=== PATIENT | female | born 1940 | race Caucasian/White ===

== ENCOUNTER 2021-01-20 15:11 | Inpatient (IN) ==
[2021-01-20 16:03] LABS: Basophils % 0.2 %; Eosinophils % 0.4 %; Hematocrit 41.5 % (35.3-44.9); Hemoglobin 13.2 g/dL (11.5-15.4); Immature Granulocytes % 0.6 % (0-4); Lymphocytes # 0.8 K/mcL (0.6-4.6); Mean Corpuscular HGB Conc 31.8 g/dL (31.6-35.5); Mean Corpuscular Volume 97.4 fL (83.0-100.0); Mean Platelet Volume 11.7 fL (9.4-12.4); Monocytes # 0.4 K/mcL (0.0-1.3); Neutrophils # 3.8 K/mcL (1.6-8.9); Platelet Count 172 K/mcL (140-400); Red Blood Count 4.26 M/mcL (3.82-4.97); Red Cell Distribution Width 13.5 % (11.5-14.5); Segmented Neutrophils % 75.8 %
[2021-01-20 16:12] LABS: INR 1.1; Prothrombin Time 12.2 Seconds (9.4-12.1)
[2021-01-20 16:15] LABS: Activated Partial Thrombo Time 28.4 Seconds (26.0-36.0)
[2021-01-20] MEDS ORDERED: Isovue-370 500 ML BOTTLE IVP ONE (16:27)
[2021-01-20 16:29] LABS: Albumin 3.4 g/dL (3.5-5.7); Albumin/Globulin Ratio 1.1 (1.1-2.2); Bilirubin,Total 0.4 mg/dL (0.3-1.0); Calcium 8.4 mg/dL (8.6-10.3); Globulin 3.2 g/dL (2.4-3.5); Magnesium 1.5 mg/dL (1.6-2.6); Potassium 4.3 mEq/L (3.5-5.1); Total Protein 6.6 g/dL (6.4-8.9); Troponin I 0.03 ng/mL (< 0.04)
[2021-01-20 16:43] LABS: Thyroid Stimulating Hormone 1.538 mcIU/mL (0.340-5.600)
[2021-01-20] MEDS ORDERED: 0.9 % Sodium Chloride 1,000 ML IV ONE (16:54)
[2021-01-20 17:06] LABS: Influenza A PCR Negative (Negative); Influenza B PCR Negative (Negative); Resp. Syncytial Virus PCR Negative (Negative)
[2021-01-20 17:08] LABS: SARS-CoV-2 by PCR (In House) Positive (Negative)
[2021-01-20 18:28] LABS: Amorphous Sediment,Urine Few per hpf (None-Few); Bacteria,Urine Moderate per hpf (None-Few); Bilirubin,Urine Negative (Negative); Blood,Urine Moderate (Negative); Clarity,Urine Turbid (Clear); Color,Urine Yellow (Yellow); Glucose,Urine (UA) 30 mg/dL (Normal); Ketones,Urine Negative (Negative); Leukocyte Esterase,Urine Large (Negative); Mucus,Urine Few per lpf (None-Few); Nitrite,Urine Positive (Negative); Protein,Urine 200 mg/dL (Neg-Trace); RBC,Urine 0-3 per hpf (0-3); Specific Gravity,Urine 1.018 (1.010-1.025); Squamous Epithelial Cell,Urine Few per hpf (None-Few); Urobilinogen,Urine Normal (Normal); WBC,Urine TNTC per hpf (0-3)
[2021-01-20] MEDS ORDERED: cefTRIAXone 1,000 MG in Water for inj. (sterile) 10 ML IVP ONE (18:33)
[2021-01-20] MEDS ORDERED: Melatonin 3 MG TABLET PO PRN (19:20)
[2021-01-20] MEDS ORDERED: Naloxone 0.4 MG/ML INJ IVP PRN (19:20)
[2021-01-20] MEDS ORDERED: *HR* Dextrose 50 % in Water (Syg) 50 ML SYRINGE IVP PRN (19:28)
[2021-01-20] MEDS ORDERED: D5% in Water 1,000 ML IVC PRN (19:28)
[2021-01-20] MEDS ORDERED: Dextrose Gel 15 GM/37.5 ML TUBE PO PRN ×2 (19:28)
[2021-01-20 19:37] LABS: Fibrinogen 610 mg/dL (169-393)
[2021-01-20 19:39] LABS: D-Dimer 1865 ng/mLFEU (0-500)
[2021-01-20] MEDS ORDERED: Ipratropium 1 PUFF INHALER IH PRN (19:42)
[2021-01-20] MEDS ORDERED: *HR* HYDROcodone/Acet 5/325 mg TABLET PO PRN (20:16)
[2021-01-20] MEDS: Ipratropium 1 PUFF INHALER IH SCH (21:28)
[2021-01-20] MEDS ORDERED: 0.9 % Sodium Chloride 1,000 ML IVC SCH (21:45)
[2021-01-20] MEDS: Insulin LISPRO 300 UNITS/3 ML VIAL SUBQ SCH (22:39)
[2021-01-20] MEDS: Gabapentin 300 MG CAPSULE PO SCH (22:40)
[2021-01-21] MEDS: Ipratropium 1 PUFF INHALER IH SCH ×4 (04:05→23:35)
[2021-01-21 05:30] LABS: Hematocrit 37.6 % (35.3-44.9); Hemoglobin 12.3 g/dL (11.5-15.4); Mean Corpuscular HGB Conc 32.7 g/dL (31.6-35.5); Mean Corpuscular Hemoglobin 31.7 pg (28.0-33.3); Mean Corpuscular Volume 96.9 fL (83.0-100.0); Platelet Count 173 K/mcL (140-400); Red Blood Count 3.88 M/mcL (3.82-4.97); Red Cell Distribution Width 13.6 % (11.5-14.5); White Blood Count 4.2 K/mcL (4.3-11.1)
[2021-01-21 05:59] LABS: Calcium 7.9 mg/dL (8.6-10.3); Magnesium 2.1 mg/dL (1.6-2.6); Potassium 4.1 mEq/L (3.5-5.1)
[2021-01-21] MEDS: *HR* Heparin 5,000 UNIT/ML VIAL SQ SCH ×2 (06:13→17:34)
[2021-01-21] MEDS: Insulin LISPRO 300 UNITS/3 ML VIAL SUBQ SCH ×4 (09:18→22:26)
[2021-01-21] MEDS: Azithromycin 500 MG in 0.9 % Sodium Chloride 250 ML IVPB SCH (09:38)
[2021-01-21] MEDS: cefTRIAXone 1,000 MG in Water for inj. (sterile) 10 ML IVP SCH (09:39)
[2021-01-21] MEDS: Aspirin Enteric Coated 81 MG Tablet PO SCH (09:40)
[2021-01-21] MEDS: Isosorbide MONOnitrate (24 HR) 30 MG TAB.ER.24H PO SCH (09:40)
[2021-01-21] MEDS: Gabapentin 300 MG CAPSULE PO SCH ×3 (09:40→22:26)
[2021-01-22] MEDS: Ipratropium 1 PUFF INHALER IH SCH ×4 (04:28→21:55)
[2021-01-22] MEDS ORDERED: Acetaminophen IV 1,000 MG/100 ML BAG IVPB ONE (05:10)
[2021-01-22] MEDS: *HR* Heparin 5,000 UNIT/ML VIAL SQ SCH ×2 (06:22→17:48)
[2021-01-22] MEDS: Insulin LISPRO 300 UNITS/3 ML VIAL SUBQ SCH ×4 (09:02→21:12)
[2021-01-22] MEDS: Azithromycin 500 MG in 0.9 % Sodium Chloride 250 ML IVPB SCH (09:58)
[2021-01-22] MEDS: Aspirin Enteric Coated 81 MG Tablet PO SCH (10:13)
[2021-01-22] MEDS: cefTRIAXone 1,000 MG in Water for inj. (sterile) 10 ML IVP SCH (10:13)
[2021-01-22] MEDS: Gabapentin 300 MG CAPSULE PO SCH ×3 (10:13→21:15)
[2021-01-22] MEDS: Isosorbide MONOnitrate (24 HR) 30 MG TAB.ER.24H PO SCH (10:50)
[2021-01-23 02:05] LABS: Basophils % 0.2 %; Eosinophils % 0.1 %; Hemoglobin 12.8 g/dL (11.5-15.4); Immature Granulocytes % 1.1 % (0-4); Lymphocytes # 0.5 K/mcL (0.6-4.6); Mean Corpuscular Hemoglobin 30.3 pg (28.0-33.3); Mean Corpuscular Volume 94.8 fL (83.0-100.0); Mean Platelet Volume 12.2 fL (9.4-12.4); Monocytes # 0.3 K/mcL (0.0-1.3); Monocytes % 3.7 %; Neutrophils # 7.4 K/mcL (1.6-8.9); Platelet Count 205 K/mcL (140-400); Red Blood Count 4.22 M/mcL (3.82-4.97); Red Cell Distribution Width 13.3 % (11.5-14.5); Segmented Neutrophils % 88.9 %
[2021-01-23 02:06] LABS: White Blood Count 8.3 K/mcL (4.3-11.1)
[2021-01-23 02:17] LABS: Potassium 4.1 mEq/L (3.5-5.1)
[2021-01-23] MEDS: Ipratropium 1 PUFF INHALER IH SCH ×4 (03:27→21:25)
[2021-01-23] MEDS: *HR* Heparin 5,000 UNIT/ML VIAL SQ SCH (05:16)
[2021-01-23] MEDS: Insulin LISPRO 300 UNITS/3 ML VIAL SUBQ SCH ×4 (08:49→21:25)
[2021-01-23] MEDS: Aspirin Enteric Coated 81 MG Tablet PO SCH (09:31)
[2021-01-23] MEDS: Isosorbide MONOnitrate (24 HR) 30 MG TAB.ER.24H PO SCH (09:31)
[2021-01-23] MEDS: cefTRIAXone 1,000 MG in Water for inj. (sterile) 10 ML IVP SCH (09:31)
[2021-01-23] MEDS: Gabapentin 300 MG CAPSULE PO SCH ×3 (09:31→21:25)
[2021-01-23] MEDS: Azithromycin 500 MG in 0.9 % Sodium Chloride 250 ML IVPB SCH (09:32)
[2021-01-23 13:48] LABS: Albumin 3.2 g/dL (3.5-5.7); Bilirubin,Direct 0.1 mg/dL (0.0-0.2); Bilirubin,Indirect 0.4 mg/dL (0.0-1.0); Bilirubin,Total 0.5 mg/dL (0.3-1.0); Globulin 3.3 g/dL (2.4-3.5); Total Protein 6.5 g/dL (6.4-8.9)
[2021-01-23] MEDS: *HR* Enoxaparin 100 MG/ML SYRINGE SQ SCH (13:57)
[2021-01-24] MEDS: Ipratropium 1 PUFF INHALER IH SCH ×4 (03:33→20:23)
[2021-01-24] MEDS: Isosorbide MONOnitrate (24 HR) 30 MG TAB.ER.24H PO SCH (08:30)
[2021-01-24] MEDS: Gabapentin 300 MG CAPSULE PO SCH ×3 (08:30→20:32)
[2021-01-24] MEDS: Aspirin Enteric Coated 81 MG Tablet PO SCH (08:30)
[2021-01-24] MEDS: cefTRIAXone 1,000 MG in Water for inj. (sterile) 10 ML IVP SCH (08:31)
[2021-01-24] MEDS: Azithromycin 500 MG in 0.9 % Sodium Chloride 250 ML IVPB SCH (08:32)
[2021-01-24] MEDS: Insulin LISPRO 300 UNITS/3 ML VIAL SUBQ SCH ×4 (08:42→20:31)
[2021-01-24 12:43] LABS: Calcium 7.8 mg/dL (8.6-10.3); Potassium 4.3 mEq/L (3.5-5.1)
[2021-01-24 13:02] LABS: Albumin 3.2 g/dL (3.5-5.7); Bilirubin,Direct 0.1 mg/dL (0.0-0.2); Bilirubin,Indirect 0.2 mg/dL (0.0-1.0); Bilirubin,Total 0.3 mg/dL (0.3-1.0); Globulin 3.3 g/dL (2.4-3.5); Total Protein 6.5 g/dL (6.4-8.9)
[2021-01-24] MEDS: *HR* Enoxaparin 100 MG/ML SYRINGE SQ SCH (16:24)
[2021-01-24] MEDS ORDERED: Insulin Human Regular 10 UNIT in 0.9 % Sodium Chloride 10 ML IV ONE (16:53)
[2021-01-24] MEDS ORDERED: Insulin DETEMIR 100 UNIT/ML X5UNITS SUBQ SCH (21:00)
[2021-01-25 01:35] LABS: Hematocrit 33.6 % (35.3-44.9); Hemoglobin 11.1 g/dL (11.5-15.4); Mean Corpuscular Hemoglobin 31.1 pg (28.0-33.3); Mean Corpuscular Volume 94.1 fL (83.0-100.0); Mean Platelet Volume 12.4 fL (9.4-12.4); Platelet Count 210 K/mcL (140-400); Red Blood Count 3.57 M/mcL (3.82-4.97); Red Cell Distribution Width 13.2 % (11.5-14.5); White Blood Count 9.1 K/mcL (4.3-11.1)
[2021-01-25] MEDS ORDERED: Insulin LISPRO 300 UNITS/3 ML VIAL SUBQ ONE ×2 (01:35→04:14)
[2021-01-25 01:58] LABS: Calcium 7.6 mg/dL (8.6-10.3); Potassium 4.1 mEq/L (3.5-5.1)
[2021-01-25] MEDS: Chloraseptic Spray 177 ML BOTTLE MM PRN ×2 (02:05→21:44)
[2021-01-25] MEDS: Ipratropium 1 PUFF INHALER IH SCH ×4 (04:21→20:10)
[2021-01-25] MEDS: Insulin LISPRO 300 UNITS/3 ML VIAL SUBQ SCH ×5 (07:04→23:54)
[2021-01-25] MEDS ORDERED: 0.9 % Sodium Chloride 1,000 ML IVC SCH (07:45)
[2021-01-25] MEDS ORDERED: Insulin Human Regular 15 UNIT in 0.9 % Sodium Chloride 10 ML IV ONE (08:00)
[2021-01-25] MEDS: cefTRIAXone 1,000 MG in Water for inj. (sterile) 10 ML IVP SCH (08:08)
[2021-01-25] MEDS: Aspirin Enteric Coated 81 MG Tablet PO SCH (08:09)
[2021-01-25] MEDS: dexAMETHasone 4 MG TABLET PO SCH (08:09)
[2021-01-25] MEDS: Insulin DETEMIR 100 UNIT/ML X5UNITS SUBQ SCH ×2 (08:09→21:38)
[2021-01-25] MEDS: Isosorbide MONOnitrate (24 HR) 30 MG TAB.ER.24H PO SCH (08:09)
[2021-01-25] MEDS: allopurinoL 300 MG TABLET PO SCH (08:10)
[2021-01-25] MEDS: Gabapentin 300 MG CAPSULE PO SCH ×3 (08:10→21:39)
[2021-01-25] MEDS ORDERED: Azithromycin 250 MG TABLET PO SCH (09:00)
[2021-01-25 12:57] LABS: Estimated Average Glucose 235 mg/dl; Hemoglobin A1C 9.8 %
[2021-01-25] MEDS: *HR* Heparin 5,000 UNIT/ML VIAL SQ SCH ×2 (15:08→21:38)
[2021-01-26 01:43] LABS: Basophils % 0.1 %; Hematocrit 31.1 % (35.3-44.9); Hemoglobin 10.6 g/dL (11.5-15.4); Immature Granulocytes % 0.9 % (0-4); Lymphocytes # 0.4 K/mcL (0.6-4.6); Lymphocytes % 5.5 %; Mean Corpuscular HGB Conc 34.1 g/dL (31.6-35.5); Mean Platelet Volume 12.3 fL (9.4-12.4); Monocytes # 0.3 K/mcL (0.0-1.3); Monocytes % 3.3 %; Neutrophils # 6.8 K/mcL (1.6-8.9); Platelet Count 211 K/mcL (140-400); Red Blood Count 3.31 M/mcL (3.82-4.97); Red Cell Distribution Width 13.1 % (11.5-14.5); Segmented Neutrophils % 90.2 %; White Blood Count 7.5 K/mcL (4.3-11.1)
[2021-01-26 02:00] LABS: Calcium 7.5 mg/dL (8.6-10.3); Potassium 4.6 mEq/L (3.5-5.1)
[2021-01-26] MEDS: Ipratropium 1 PUFF INHALER IH SCH ×4 (04:19→19:55)
[2021-01-26] MEDS: *HR* Heparin 5,000 UNIT/ML VIAL SQ SCH ×3 (05:39→20:47)
[2021-01-26] MEDS: Isosorbide MONOnitrate (24 HR) 30 MG TAB.ER.24H PO SCH (09:45)
[2021-01-26] MEDS: dexAMETHasone 4 MG TABLET PO SCH (09:45)
[2021-01-26] MEDS: Aspirin Enteric Coated 81 MG Tablet PO SCH (09:45)
[2021-01-26] MEDS: Gabapentin 300 MG CAPSULE PO SCH ×3 (09:45→20:47)
[2021-01-26] MEDS: allopurinoL 300 MG TABLET PO SCH (09:45)
[2021-01-26] MEDS: cefTRIAXone 1,000 MG in Water for inj. (sterile) 10 ML IVP SCH (09:46)
[2021-01-26] MEDS: Insulin DETEMIR 100 UNIT/ML X5UNITS SUBQ SCH ×2 (09:51→20:56)
[2021-01-26] MEDS: Insulin LISPRO 300 UNITS/3 ML VIAL SUBQ SCH ×6 (09:59→20:58)
[2021-01-26] MEDS ORDERED: Sodium Bicarbonate 75 MEQ in 0.45 % Sodium Chloride 1,000 ML IVC SCH (14:15)
[2021-01-26] MEDS ORDERED: Insulin Human Regular 20 UNIT in 0.9 % Sodium Chloride 10 ML IV ONE (16:46)
[2021-01-27 02:13] LABS: Hematocrit 31.8 % (35.3-44.9); Hemoglobin 10.8 g/dL (11.5-15.4); Mean Corpuscular Hemoglobin 31.3 pg (28.0-33.3); Mean Corpuscular Volume 92.2 fL (83.0-100.0); Mean Platelet Volume 12.1 fL (9.4-12.4); Platelet Count 246 K/mcL (140-400); Red Blood Count 3.45 M/mcL (3.82-4.97); Red Cell Distribution Width 12.9 % (11.5-14.5)
[2021-01-27 02:35] LABS: Calcium 7.8 mg/dL (8.6-10.3); Potassium 4.5 mEq/L (3.5-5.1)
[2021-01-27] MEDS: Ipratropium 1 PUFF INHALER IH SCH ×4 (04:16→21:28)
[2021-01-27] MEDS: *HR* Heparin 5,000 UNIT/ML VIAL SQ SCH ×3 (05:18→20:31)
[2021-01-27] MEDS: Insulin LISPRO 300 UNITS/3 ML VIAL SUBQ SCH ×7 (08:25→20:32)
[2021-01-27] MEDS: allopurinoL 300 MG TABLET PO SCH (08:30)
[2021-01-27] MEDS: Aspirin Enteric Coated 81 MG Tablet PO SCH (08:30)
[2021-01-27] MEDS: *HR* SitaGLIPtin 25 MG TABLET PO SCH (08:30)
[2021-01-27] MEDS: Gabapentin 300 MG CAPSULE PO SCH ×3 (08:30→20:31)
[2021-01-27] MEDS: Isosorbide MONOnitrate (24 HR) 30 MG TAB.ER.24H PO SCH (08:30)
[2021-01-27] MEDS: Insulin DETEMIR 100 UNIT/ML X5UNITS SUBQ SCH ×2 (08:31→20:31)
[2021-01-27] MEDS ORDERED: Sodium Bicarbonate 75 MEQ in 0.45 % Sodium Chloride 1,000 ML IVC ONE (13:47)
[2021-01-28 01:34] LABS: Hematocrit 34.3 % (35.3-44.9); Hemoglobin 11.2 g/dL (11.5-15.4); Mean Corpuscular HGB Conc 32.7 g/dL (31.6-35.5); Mean Corpuscular Hemoglobin 30.6 pg (28.0-33.3); Mean Corpuscular Volume 93.7 fL (83.0-100.0); Mean Platelet Volume 11.8 fL (9.4-12.4); Platelet Count 248 K/mcL (140-400); Red Blood Count 3.66 M/mcL (3.82-4.97); White Blood Count 10.6 K/mcL (4.3-11.1)
[2021-01-28 01:45] LABS: Calcium 7.9 mg/dL (8.6-10.3); Potassium 4.2 mEq/L (3.5-5.1)
[2021-01-28] MEDS: Ipratropium 1 PUFF INHALER IH SCH ×4 (03:56→23:06)
[2021-01-28] MEDS: *HR* Heparin 5,000 UNIT/ML VIAL SQ SCH ×3 (04:35→20:30)
[2021-01-28] MEDS: Insulin LISPRO 300 UNITS/3 ML VIAL SUBQ SCH ×7 (08:39→20:37)
[2021-01-28] MEDS: Aspirin Enteric Coated 81 MG Tablet PO SCH (08:40)
[2021-01-28] MEDS: allopurinoL 300 MG TABLET PO SCH (08:40)
[2021-01-28] MEDS: Isosorbide MONOnitrate (24 HR) 30 MG TAB.ER.24H PO SCH (08:40)
[2021-01-28] MEDS: *HR* SitaGLIPtin 25 MG TABLET PO SCH (08:40)
[2021-01-28] MEDS: Gabapentin 300 MG CAPSULE PO SCH ×3 (08:40→20:30)
[2021-01-28] MEDS: Insulin DETEMIR 100 UNIT/ML X5UNITS SUBQ SCH ×2 (12:15→20:31)
[2021-01-29 02:12] LABS: Calcium 8.2 mg/dL (8.6-10.3); Potassium 4.4 mEq/L (3.5-5.1)
[2021-01-29] MEDS: Ipratropium 1 PUFF INHALER IH SCH ×4 (03:53→20:45)
[2021-01-29] MEDS: *HR* Heparin 5,000 UNIT/ML VIAL SQ SCH ×3 (05:36→21:44)
[2021-01-29] MEDS: Isosorbide MONOnitrate (24 HR) 30 MG TAB.ER.24H PO SCH (10:00)
[2021-01-29] MEDS: *HR* SitaGLIPtin 25 MG TABLET PO SCH (10:00)
[2021-01-29] MEDS: Gabapentin 300 MG CAPSULE PO SCH ×3 (10:00→21:43)
[2021-01-29] MEDS: Aspirin Enteric Coated 81 MG Tablet PO SCH (10:00)
[2021-01-29] MEDS: allopurinoL 300 MG TABLET PO SCH (10:00)
[2021-01-29] MEDS: Insulin DETEMIR 100 UNIT/ML X5UNITS SUBQ SCH ×2 (10:21→21:44)
[2021-01-29] MEDS: Insulin LISPRO 300 UNITS/3 ML VIAL SUBQ SCH ×7 (10:21→21:48)
[2021-01-30 02:46] LABS: Calcium 8.6 mg/dL (8.6-10.3); Potassium 4.6 mEq/L (3.5-5.1)
[2021-01-30] MEDS: Ipratropium 1 PUFF INHALER IH SCH ×4 (04:34→22:39)
[2021-01-30] MEDS: *HR* Heparin 5,000 UNIT/ML VIAL SQ SCH ×3 (05:53→21:16)
[2021-01-30] MEDS: Isosorbide MONOnitrate (24 HR) 30 MG TAB.ER.24H PO SCH (08:09)
[2021-01-30] MEDS: Gabapentin 300 MG CAPSULE PO SCH ×3 (08:09→21:16)
[2021-01-30] MEDS: *HR* SitaGLIPtin 25 MG TABLET PO SCH (08:09)
[2021-01-30] MEDS: Aspirin Enteric Coated 81 MG Tablet PO SCH (08:09)
[2021-01-30] MEDS: allopurinoL 300 MG TABLET PO SCH (08:09)
[2021-01-30] MEDS: Insulin LISPRO 300 UNITS/3 ML VIAL SUBQ SCH ×7 (08:17→21:21)
[2021-01-30] MEDS: Insulin DETEMIR 100 UNIT/ML X5UNITS SUBQ SCH ×2 (08:18→21:17)
[2021-01-31] MEDS: Ipratropium 1 PUFF INHALER IH SCH ×3 (03:52→15:56)
[2021-01-31] MEDS: *HR* Heparin 5,000 UNIT/ML VIAL SQ SCH ×2 (05:45→16:49)
[2021-01-31] MEDS: Insulin LISPRO 300 UNITS/3 ML VIAL SUBQ SCH ×6 (08:08→16:50)
[2021-01-31] MEDS: Isosorbide MONOnitrate (24 HR) 30 MG TAB.ER.24H PO SCH (08:14)
[2021-01-31] MEDS: Gabapentin 300 MG CAPSULE PO SCH ×2 (08:15→16:49)
[2021-01-31] MEDS: Aspirin Enteric Coated 81 MG Tablet PO SCH (08:15)
[2021-01-31] MEDS: *HR* SitaGLIPtin 25 MG TABLET PO SCH (08:15)
[2021-01-31] MEDS: allopurinoL 300 MG TABLET PO SCH (08:15)
[2021-01-31] MEDS: Insulin DETEMIR 100 UNIT/ML X5UNITS SUBQ SCH (08:23)
[2021-01-31 11:27] VITALS: O2SAT 92
[2021-01-31 16:29] VITALS: BP 98/61; PULSE 84; TEMP 98.1
== END 2021-01-31 19:18 | DRG 871 ==
LOC: EMEROOARM 15:11 → 2ANU 15:11 → SUATTDRO 19:20 → 2ANU 20:19
PROVIDERS: ADMIT Internal Medicine; ATTEND Internal Medicine